=== PATIENT | male | born 1975 | race African-American/Black ===

== ENCOUNTER 2017-01-01 07:36 | Emergency (ER) | payer SELFPAY ==
[2017-01-01 07:53] VITALS: TEMP 98.1; BMI 35.1
[2017-01-01 08:36] LABS: AUTOMATED BASOPHIL 0.6 % (0-2); AUTOMATED EOSINOPHIL 1.8 % (0-5); AUTOMATED MONOCYTE 7.8 % (3-10); AUTOMATED NEUTROPHIL 59.8 % (45-76); MPV 8.9 fL (7.4-10.4)
[2017-01-01] MEDS ORDERED: NS 1,000 ML IV ONE (08:43)
[2017-01-01 08:50] LABS: BLOOD UREA NITROGEN 16 MG/DL (9-20); CALCIUM 9.3 MG/DL (8.4-10.2); CALCULATED OSMOLALITY 270 MOs/Kg (270-290); CHLORIDE 104 mEq/L (98-107); GLUCOSE 102 mg/dL (70-99); SODIUM LEVEL 140 mEq/L (137-146); TOTAL PROTEIN 7.8 G/DL (6.3-8.2)
--- NOTE | 2017-01-01 08:59 | EDPRACDOC ---
- General Information Chief Complaint: Neuro Symptoms/Deficits Stated Complaint: SYNCOPE Time Seen by Provider: 01/01/17 08:40 Information Source: Patient Home Medications: Home Medications Ondansetron HCl [Zofran] 4 mg PO Q6H PRN #15 tab 01/01/17 Allergies/Adverse Reactions: Allergies Allergy/AdvReac Type Severity Reaction Status Date / Time No Known Allergies Allergy Verified 01/01/17 07:54 - History of Present Illness Onset: [employer]PECT [employer]GER HPI: PT PRESENTS AFTER SYNCOPAL EVENT AT WORK WITH BRIEF LOC. HE REPORTS THAT BEFORE HAND THERE WAS DIZZINESS AND SHORTNESS OF BREATH WHICH HAS RESOLVED SINCE ARRIVAL TO ER. HE REPORTS NO EATING THIS MORNING PER HIS USUAL HABITS. Presyncopal phase:: Denies: Chest Pain Syncopal phase:: Reports: With exertion Postsyncopal phase:: Reports: Rapid recovery History of: Reports: Syncope (REMOTE). Denies: Atrial Fibrillation, Seizures Associated Signs/Symptoms: Reports: SOB. Denies: Chest pain, Diarrhea, Fever, Vomiting ED Past Medical History - History Reviewed Yes Nurses notes reviewed and agree except as marked - Patient Medical History Cardiac History: Reports: Hypertension GI/ History: Reports: Gastroesophageal Reflux Psychological History: Denies: Depression - Social Medical History Smoking Status: Heavy tobacco smoker (5 or more cigarettes/day or daily pipe/ cigar) Lives In: Home EDM Review of Systems - Review of Systems ROS Negative Except as Marked: Yes All systems reviewed and were negative except as marked Constitutional: Fatigue. negative: Fever Respiratory: Shortness of Breath. negative: Cough Cardiovascular: Syncope. negative: Chest Pain Gastrointestinal: negative: Nausea, Pain, Vomiting Neurological: Dizziness (PRIOR TO SYNCOPE. NO RESOLVED.) - Physical Exam Constitutional: Alert Oriented to: Time, Person, Place Last recorded Vital Signs: Last Vital Signs Temp 98.1 F 01/01/17 07:51 Pulse 69 01/01/17 07:51 Resp 20 01/01/17 07:51 BP 158/88 01/01/17 07:51 Pulse Ox 97 01/01/17 07:51 Oxygen Pulse Oxygen Saturation 97 O2 Device Room Air Oxygen Flow Rate Fraction of Inspired Oxygen ( FIO2) - HEENT Head: Tender (RIGHT TEMPORAL). negative: Deformity, Laceration Eye Exam: negative: Conjunctival Injection, Pale Conjunctiva Oropharynx: negative: Membranes Dry Nose: negative: Congestion, Discharge Neck: negative: Limited ROM - Respiratory/Cardiovascular Respiratory: Normal - CTA. negative: Accessory Muscle Use, Diminished, Tachypnea Cardiovascular: negative: Bradycardia, Tachycardia, Irregular - GI Auscultation: Normal Palpation: Normal Tenderness: Non tender - Musculoskeletal Extremities: Radial Pulse (PALPABLE) - Integumentary Skin: Warm, Dry. negative: Rash - Neurologic Memory Impaired: Normal Motor Function: Normal Mood Description: Anxious, Appropriate Thought: Coherent Perception: Normal - Results 01/01/17 08:05 01/01/17 08:05 WBC 7.8 xk/uL (3.8-10.8) 01/01/17 08:05 RBC 5.91 xM/uL (4.70-6.10) 01/01/17 08:05 Hgb 15.4 g/dL (14.0-18.0) 01/01/17 08:05 Hct 45.8 % (42-52) 01/01/17 08:05 MCV 78 fL (80-94) L 01/01/17 08:05 MCH 26.0 pg (27-32) L 01/01/17 08:05 MCHC 33.5 g/dl (33-36) 01/01/17 08:05 RDW 14.5 % (11.5-14.5) 01/01/17 08:05 Plt Count 223 xk/uL (130-400) 01/01/17 08:05 MPV 8.9 fL (7.4-10.4) 01/01/17 08:05 Neut % (Auto) 59.8 % (45-76) 01/01/17 08:05 Lymph % (Auto) 30.0 % (17-44) 01/01/17 08:05 [place] % (Auto) 7.8 % (3-10) 01/01/17 08:05 Eos % (Auto) 1.8 % (0-5) 01/01/17 08:05 Baso % (Auto) 0.6 % (0-2) 01/01/17 08:05 Absolute Neuts (auto) 4.60 xk/uL (1.7-8.2) 01/01/17 08:05 Absolute Lymphs (auto) 2.34 xk/uL (0.65-4.75) 01/01/17 08:05 Lab Results 01/01/17 08:05 WBC 7.8 RBC 5.91 Hgb 15.4 Hct 45.8 MCV 78 L MCH 26.0 L MCHC 33.5 RDW 14.5 Plt Count 223 MPV 8.9 Neut % (Auto) 59.8 Lymph % (Auto) 30.0 [place] % (Auto) 7.8 Eos % (Auto) 1.8 Baso % (Auto) 0.6 Absolute Neuts (auto) 4.60 Absolute Lymphs (auto) 2.34 - EKG EKG #1 EKG Time: 09:02 -: Yes EKG interpreted by me Rate: bpm: 60 [place]: Normal Rhythm: NSR Block: None Hypertrophy: None ST: Normal Decision Time to Discharge: 09:51 - Departure Yes I personally saw and evaluated the patient. Disposition: Home Condition: Stable Final Diagnosis: Syncope Qualifiers: Syncope type: unspecified Qualified Code(s): R55 - Syncope and collapse Concussion Qualifiers: Encounter type: initial encounter Loss of consciousness presence/duration: with LOC of unspecified duration Qualified Code(s): S06.0X9A - Concussion with loss of consciousness of unspecified duration, initial encounter Instructions: Concussion (ED), Syncope (ED) Education/Counseling Given To: Patient Education/Counseling Given Regarding: Diagnosis, Treatment, Prognosis, Follow Up Referrals: None,No Provider [Primary Care Provider] - One Week Rudi Torre II, MD [Staff Physician] - As Needed Prescriptions: New Ondansetron HCl [Zofran] 4 mg PO Q6H PRN #15 tab PRN Reason: Nausea/Vomiting
--- NOTE | 2017-01-01 09:09 | DIRPT ---
CLINICAL DATA: Syncope after hypertension EXAM: CHEST 2 VIEW COMPARISON: None. FINDINGS: Normal mediastinum and cardiac silhouette. Normal pulmonary vasculature. No evidence of effusion, infiltrate, or pneumothorax. No acute bony abnormality. IMPRESSION: No acute cardiopulmonary process. Electronically Signed By: Jn Saucedo M.D. On: 01/01/2017 09:06
[2017-01-01 09:12] LABS: PARTIAL THROMB. TIME 27.2 SEC (22-35)
--- NOTE | 2017-01-01 09:15 | DIRPT ---
CLINICAL DATA: Fall with trauma to the right side of the head. Loss of consciousness. EXAM: CT HEAD WITHOUT CONTRAST TECHNIQUE: Contiguous axial images were obtained from the base of the skull through the vertex without intravenous contrast. COMPARISON: None. FINDINGS: The brain has a normal appearance without evidence of malformation, atrophy, old or acute infarction, mass lesion, hemorrhage, hydrocephalus or extra-axial collection. The calvarium is unremarkable. The paranasal sinuses, middle ears and mastoids are clear. IMPRESSION: Normal head CT Electronically Signed By: Aleks Ledesma M.D. On: 01/01/2017 09:12
[2017-01-01 10:17] VITALS: BP 149/91; PULSE 75
== END 2017-01-01 10:22 | disposition home or self-care (01) ==
LOC: ED 07:36
DX: R55 Syncope and collapse (principal); S06.0X9A Concussion with loss of consciousness of unspecified duration, initial encounter; X58.XXXA Exposure to other specified factors, initial encounter; Y93.9 Activity, unspecified
CPT/HCPCS: 36415; 70450; 71020; 80053; 84484; 85025; 85379; 85610; 85730; 93005; 96360; 99283